=== PATIENT | male | born 1975 | race Caucasian/White ===

== ENCOUNTER 2022-10-19 10:40 | Emergency (ER) | payer BC, SELFPAY ==
[2022-10-19 10:41] VITALS: BP 115/73; PULSE 69; RESP 18; TEMP 36.9; O2SAT 99; BMI 32.3
--- NOTE | 2022-10-19 10:53 | EXP.UTC ---
Discharge Plan Disposition Patient Disposition: Home, Self-Care Condition: Good Prescriptions Prescriptions: New ciprofloxacin-dexamethasone 0.3-0.1 % Drops,Suspension 2 drp Ear-Left BID 7 Days Qty: 1 0RF Referrals Follow up/Referrals: Provider,Referral, MD [Primary Care Provider] - See instructions Activity Restrictions/Add. Instructions Additional Instructions/Restrictions: Use the ear drops as directed. Take tylenol or ibuprofen for pain or fever. Follow up with your regular doctor. GO TO THE ER FOR ANY WORSENING SYMPTOMS Clinical Impressions Clinical Impression: Impacted cerumen of left ear Stand Alone Forms Stand Alone Forms: Work/School Release Instructions Patient Instructions: How to Instill Ear Drops, DI for Cerumen Impaction, Cerumen Impaction Discharge ED Provider[place] Nba Wray [facility] [place] General Stated complaint: difficulty hearing from left ear Time Seen by Provider: 10/19/22 10:53 History of Present Illness Provider Complaint: He states that for the past 3 days he has had decreased hearing in his left ear. Related Data Previous Rx's Medication Instructions Recorded ciprofloxacin 0.3 %-dexamethasone 2 drp Ear-Left BID 7 days #1 ea 10/19/22 0.1 % ear drops,suspension Allergies Allergy/AdvReac Type Severity Reaction Status Date / Time Penicillins Allergy Verified 10/19/22 10:57 [facility] Disclaimer: The information contained in this section may have been updated after the patient was seen, as this information can be updated by other users. Social History Smoking Status: Former smoker alcohol intake: never current occupational status: employed Travel in the last 8 weeks: None ROS Obtained: Yes All systems reviewed & no additional complaints except as documented Constitutional Constitutional: Denies chills and Denies fever(s) Eyes Eyes: Denies eye discharge ENT Ears, Nose, Mouth, and Throat: Reports as per HPI, Denies dizziness, Reports otalgia and Denies sore throat Cardiovascular Cardiovascular: Denies chest pain Respiratory Respiratory: Denies shortness of breath, Denies chest congestion, Denies cough, Denies stridor and Denies wheezing Gastrointestinal Gastrointestingal: Denies nausea or vomiting Musculoskeletal Musculoskeletal: Reports system reviewed and no additional complaints, except as documented and Denies arthralgias Integumentary/Breasts Skin/Breast: Denies rash Neurologic Neurologic: Denies dizziness and Denies paresthesias Allergic/Immunologic Allergic/Immunologic: Denies wheezing Physical Exam General General appearance: alert and in no apparent distress Head Head exam: atraumatic, normocephalic and normal inspection Eye Eye exam: Present normal appearance, PERRL and EOMI ENT ENT exam: Present normal oropharynx, mucous membranes moist, TM's normal bilaterally and normal external ear exam Expanded ENT Exam TM/Canal exam: Left TM: cerumen impaction Neck Neck exam: Present normal inspection, full ROM and trachea midline; Absent meningismus or lymphadenopathy Chest Chest inspection: Present normal inspection and symmetric chest wall rise; Absent tenderness Respiratory Respiratory exam: Present normal lung sounds bilaterally; Absent respiratory distress Cardiovascular Cardiovascular exam: Present regular rate and normal rhythm; Absent JVD Abdominal Exam Abdominal exam: Present soft and normal bowel sounds; Absent distention, tenderness or guarding Extremities Exam Extremities exam: Present normal inspection, full ROM and normal capillary refill; Absent calf tenderness Back Exam Back exam: Present normal inspection; Absent tenderness Neurological Exam Neurological exam: Present alert and oriented X3 Psychiatric Psychiatric exam: Present normal affect and normal mood Skin Skin exam: Present warm, dry, intact and normal color Lymphatic Lymphatic Findings: no adenopathy Medical
[2022-10-19 11:22] VITALS: BP 115/73; PULSE 69; RESP 18; TEMP 36.9; O2SAT 99
== END 2022-10-19 11:23 | disposition home or self-care (01) ==
PROVIDERS: Emergency Provider Nurse Practitioner Family
DX: H61.22 Impacted cerumen, left ear (principal); Z87.891 Personal history of nicotine dependence
CPT/HCPCS: 99204; 99212; G0463